=== PATIENT | male | born 1970 | race American Indian/Alaskan Native ===

== ENCOUNTER 2017-08-11 09:17 | Emergency (ER) | payer BC ==
[2017-08-11 10:06] VITALS: BP 152/98
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
== END 2017-08-11 11:50 | disposition home or self-care (01) ==
LOC: ED 09:17
DX: M54.5 Low back pain (principal); V49.29XA Unspecified car occupant injured in collision with other motor vehicles in nontraffic accident, initial encounter; Y93.89 Activity, other specified; Y92.89 Other specified places as the place of occurrence of the external cause; Y99.8 Other external cause status
CPT/HCPCS: 99282